=== PATIENT | female | born 1985 | race Two or more races ===

== ENCOUNTER 2018-03-22 12:45 | Emergency (ER) | payer BC ==
[~2018-03-22] VITALS: Ht 162.6 cm; Wt 90.0 kg
[2018-03-22 12:53] VITALS: BP 154/93
[2018-03-22] MEDS ORDERED: FAMOTIDINE 20 MG TABLET PO ONE (14:00)
[2018-03-22] MEDS ORDERED: EPINEPHRINE 1 MG/ML, 1ML IM ONE (14:00)
[2018-03-22] MEDS ORDERED: FAMOTIDINE 20 MG TABLET ONE (14:18)
[2018-03-22] MEDS ORDERED: EPINEPHRINE 1 MG/ML, 1ML ONE (14:18)
== END 2018-03-22 15:41 | disposition home or self-care (01) ==
LOC: ED 15:35
DX: T78.3XXA Angioneurotic edema, initial encounter (principal); Y92.9 Unspecified place or not applicable
CPT/HCPCS: 96372; 99283; J0171; J7512